=== PATIENT | female | born 1965 | race Caucasian/White ===

== ENCOUNTER 2023-07-07 17:11 | Emergency (ER) | payer MEDICAID, SELFPAY ==
[2023-07-07] VITALS (8 sets, daily range): BP systolic 110–141; BP diastolic 78–94; PULSE 70–111; RESP 16–33; TEMP 36.4; O2SAT 87–98
--- NOTE | ~2023-07-07 | XR_ITS ---
EXAMINATION: XR chest 2V DATE: 07/07/2023 23:36 INDICATION: Cough TECHNIQUE: PA and lateral views of the chest are obtained. COMPARISON: None available FINDINGS: The lungs are free of acute opacities. There is atelectasis or scarring in the left lung ba se. No pleural effusion or pneumothorax. The cardiomediastinal silhouette is normal. There is mild th oracic spondylosis. IMPRESSION: 1. No acute cardiopulmonary abnormality. Reviewed, dictated and finalized at location F.
--- NOTE | ~2023-07-07 | XR_ITS ---
EXAMINATION: XR knee RT min 4V DATE: 07/07/2023 23:45 INDICATION: Right knee pain and swelling TECHNIQUE: Four views of the right knee were obtained. COMPARISON: None. FINDINGS: Alignment is normal. No fracture or osteochondral lesion. There is tricompartmental osteoar thritis of the knee, severe in the medial compartment. No joint effusion/synovitis. Soft tissues are unremarkable. IMPRESSION: 1. No acute osseous abnormality. Reviewed, dictated and finalized at location F.
--- NOTE | ~2023-07-07 | XR_ITS ---
EXAMINATION: XR knee LT min 4V DATE: 07/07/2023 23:45 INDICATION: Left knee pain and swelling TECHNIQUE: Four views of the left knee were obtained. COMPARISON: None. FINDINGS: Alignment is normal. No fracture or osteochondral lesion. There is tricompartmental osteoar thritis of the knee, moderate to severe in the medial compartment. No joint effusion/synovitis. Soft tissues are unremarkable. IMPRESSION: 1. No acute osseous abnormality. Reviewed, dictated and finalized at location F.
--- NOTE | 2023-07-07 17:30 | ECG_ITS ---
Measurements Intervals [place] Rate: 76 P: 60 [place]: 170 QRS: 34 QRSD: 80 T: 32 QT: 386 QTc: 434 Interpretive Statements SINUS RHYTHM LOW QRS VOLTAGE IN PRECORDIAL LEADS [QRS DEFLECTION < 1.0 mV IN CHEST LEADS] ABNORMAL ECG NO PREVIOUS ECG AVAILABLE FOR COMPARISON Electronically Signed On 07-08-2023 10:28:27 CDT by Goyo Jalloh M.D.
--- NOTE | 2023-07-07 17:30 | ED.GENADULT ---
HPI - General Adult General Chief complaint: Unspecified Stated complaint: infection in my whole body, BLE swellling Time Seen by Provider: 07/07/23 17:31 Source: patient Mode of arrival: ambulatory Limitations: no limitations History of Present Illness HPI narrative: This is a 58-year-old female who presents to the ED with multiple complaints. Reports several years of lower extremity pain with ambulation. States this is worse over the past couple of days with increased swelling to the lower legs as well. States the pain is specifically onset with ambulation and states this causes difficulty with walking. Endorses shortness of breath with ambulation. Also reports that she has an infection throughout her whole body because she has concomitant clear nasal drainage and congestion. Also endorses dry cough. She feels that these are all related. Reports she is currently homeless as she just recently moved out of her previous house. She further elaborates on the situation stating that This is probably spiritual. I am a [place] and everyone else are demons. She goes on to state that I have been gifted by the restorationist; out of everyone in the world I am able to see heaven anytime I want.. All I have to do is close my eyes. Denies fevers, chills, chest pain, Related Data Allergies Allergy/AdvReac Type Severity Reaction Status Date / Time No Known Allergies Allergy Verified 07/08/23 00:44 Review of Systems Review of Systems: All systems as dictated in HPI Exam Narrative: GENERAL: Well-appearing, well-nourished, and in no acute distress. HEAD: Normocephalic, atraumatic. EYES: PERRLA and EOMI. ENT: Nares clear, no rhinorrhea or epistaxis. Mucous membranes moist. Oropharynx without tonsillar hypertrophy exudate or other lesions. NECK: Supple. No adenopathy or masses. CHEST: No respiratory distress. Clear to auscultation. No wheezes rales or rhonchi HEART: Regular rate and rhythm. No murmur heard. Normal peripheral pulses. ABDOMEN: Soft, nontender, nondistended, normal active bowel sounds. MSK: 1+ pitting edema to the bilateral lower extremities from foot to knee. SKIN: Warm, dry, no rash. NEURO: Alert and oriented x3. No focal deficits. PSYCH: There is apparent delusional thought content. Course Vital Signs Vital signs: Vital Signs Temperature 97.6 F 10/10/23 17:15 Pulse Rate 111 H 07/07/23 17:15 Respiratory Rate 20 07/07/23 17:15 Blood Pressure 136/82 07/07/23 17:15 Pulse Oximetry 97 07/07/23 17:15 Oxygen Delivery Room Air 07/07/23 17:15 Temperature 97.6 F 07/07/23 17:15 Pulse Rate 85 07/08/23 01:49 Respiratory Rate 16 07/08/23 01:49 Blood Pressure 140/90 07/08/23 01:49 Pulse Oximetry 98 07/08/23 01:49 Oxygen Delivery Room Air 07/07/23 17:15 Medical Decision Making MDM Narrative Medical decision making narrative: Medical screening exam performed by advanced practice provider in triage. Vital Signs Vital Signs: Vital Signs Temperature 97.6 F 07/07/23 17:15 Pulse Rate 111 H 07/07/23 17:15 Respiratory Rate 20 07/07/23 17:15 Blood Pressure 136/82 07/07/23 17:15 Pulse Oximetry 97 07/07/23 17:15 Oxygen Delivery Room Air 07/07/23 17:15 Temperature 97.6 F 07/07/23 17:15 Pulse Rate 85 07/08/23 01:49 Respiratory Rate 16 07/08/23 01:49 Blood Pressure 140/90 07/08/23 01:49 Pulse Oximetry 98 07/08/23 01:49 Oxygen Delivery Room Air 07/07/23 17:15 Lab Data 07/07/23 17:36 07/07/23 17:36 Labs: Lab Results 07/07/23 07/07/23 Range/Units 17:36 23:52 WBC 9.1 (4.5-10.0) K/mm3 RBC 4.27 (4.2-5.4) M/mm3 Hgb 11.5 L (12.0-15.0) g/dL Hct 38.0 (37.0-47.0) % MCV 89.0 (80-100) fl MCH 26.9 (26-34) pg MCHC 30.3 L (32-36) g/dl RDW 13.9 (11.5-14.5) % Plt Count 293 (150-375) k/mm3 MPV 9.0 (7.4-10.4) fl Immature Gran % (Auto) 0.4 (0-0.5) % [place]
--- NOTE | 2023-07-07 17:41 | PC.NURSE ---
Patient asked nurse how much an EKG would cost. When nurse was unable to tell her she states I'm going to hold off on that test right now.
[2023-07-07 17:44] LABS: Basophils Absolute Auto 0.1 K/mm3 (0.0-0.1); Basophils Percent Auto 0.7 % (0.2-1.2); Eosinophils Absolute Auto 0.2 K/mm3 (0-0.3); Eosinophils Percent Auto 1.7 % (0-4.4); Hemoglobin 11.5 g/dL (12.0-15.0); Immature Granulocyte Absolute 0.04 K/mm3 (0.00-0.031); Immature Granulocyte Percent A 0.4 % (0-0.5); Lymphocytes Absolute Auto 2.63 K/mm3 (0.9-3.2); Mean Corpuscular HGB Conc 30.3 g/dl (32-36); Mean Corpuscular Hemoglobin 26.9 pg (26-34); Monocytes Absolute Auto 0.6 K/mm3 (0.1-0.6); Monocytes Percent Auto 6.7 % (2.6-8.5); Neutrophils Absolute Auto 5.6 K/mm3 (1.3-6.7); Neutrophils Percent Auto 61.5 % (45.5-73.1); Platelet Count Result 293 k/mm3 (150-375); Red Blood Count 4.27 M/mm3 (4.2-5.4); Red Cell Distribution Width 13.9 % (11.5-14.5); White Blood Count 9.1 K/mm3 (4.5-10.0)
[2023-07-07 17:54] LABS: Alanine Aminotransferase 62 U/L (6-35); Albumin Level 4.3 g/dL (3.5-5.1); Alkaline Phosphatase 66 U/L (38-126); Anion Gap 11 mmol/L (8-16); Aspartate Amino Transferase 67 U/L (14-36); Bilirubin,Total 0.4 mg/dL (0.2-1.3); Blood Urea Nitrogen 16 mg/dL (7-17); Calcium 9.3 mg/dL (8.4-10.2); Carbon Dioxide 24 mmol/L (22-30); Chloride 106 mmol/L (98-107); Estimated CRCL calculation 67 ml/min; Estimated Glomerular Filt Rate > 60; Glucose 145 mg/dL (65-110); Potassium 3.8 mmol/L (3.4-5.0); Sodium 141 mmol/L (137-145)
[2023-07-07 18:02] LABS: NT Pro B Type Natriuretic Pept < 20 pg/mL (19.9-100)
[2023-07-07 18:19] LABS: Influenza A QL RT-PCR Negative (Negative); Influenza B QL RT-PCR Negative (Negative); RSV RNA, RT-PCR Negative (Negative); SARS-CoV-2 RNA PCR Negative (Negative)
--- NOTE | 2023-07-07 23:25 | ED.GENADULT ---
HPI - General Adult General Chief complaint: Unspecified Stated complaint: infection in my whole body, BLE swellling Time Seen by Provider: 07/07/23 17:31 Source: patient Mode of arrival: ambulatory Limitations: no limitations History of Present Illness HPI narrative: 58-year-old female reports for evaluation for multiple complaints. She is reporting purulent drainage and crusting to her bilateral eyes for the past 3 weeks as well as an intermittent foreign body sensation and erythema. She does wear contacts. States she had an appointment with her eye doctor 1 month ago that was normal. She is also reporting nasal congestion and rhinorrhea for the past 3 weeks as well as a productive cough with yellow mucus. Patient states she has had bilateral lower extremity edema for the past 3 years with lower extremity pain, especiall to her knees. She reports difficulty walking secondary to this edema. No injury or trauma, no history of VTE, no diagnosis of CHF. She denies history of COPD or asthma. Denies chest pain or shortness of breath, fever, body aches or chills, abdominal pain, nausea, vomiting, diarrhea, sore throat, otalgia, headache, back pain, dysuria or hematuria, vaginal discharge or concern for STDs. Denies injury or trauma to her eye, vision changes, pain with EOMs, eye trauma. Related Data Allergies Allergy/AdvReac Type Severity Reaction Status Date / Time No Known Allergies Allergy Verified 07/08/23 00:44 Review of Systems Review of Systems: CONSTITUTIONAL: Denies fever, chills EYES: Denies visual changes, redness, or discharge. ENT: See HPI CARDIOVASCULAR: See HPI RESPIRATORY: Denies cough or dyspnea. GASTROINTESTINAL: Denies abdominal pain, nausea, vomiting, or diarrhea. GENITOURINARY: Denies dysuria or hematuria. SKIN: Denies rash or itching. MUSCULOSKELETAL: See HPI NEUROLOGIC: Denies headache, numbness, dizziness, or weakness. PSYCHIATRIC: Denies anxiety or depression. Exam Narrative: GENERAL: Well-appearing, in no acute distress. Patient resting comfortably in exam bed. She is pleasant and conversational. HEAD: Normocephalic EYES: PERRLA, EOMI. Erythema to bilateral eyes with small amount of crusting in the medial canthus. No cobblestoning, no chemosis. Fluroesceine staining shows no foreign body, abrasions, ulcerations or lesions. Ocular pressures 11mmHg in R eye and 9 mmHg in L eye ENT: Nares clear. Mucous membranes moist. Oropharynx without tonsillar hypertrophy exudate or other lesions. Bilateral TMs are flores nonbulging. Normal canals. No mastoid tenderness. No pain with movement of auricles. NECK: Supple. CHEST: No respiratory distress. Clear to auscultation, no adventitious breath sounds. HEART: Regular rate and rhythm. No murmur heard. Normal peripheral pulses. ABDOMEN: Soft, nontender, normal active bowel sounds. EXTREMITIES: Generalized tenderness to bilateral knees and calves. No overlying erythema or warmth to knees or extremities. Equal nonpitting edema to bilateral lower extremities. No superficial veins or evidence of varicose veins. Full range of motion of hips and knees. Cap refill less than 2. Sensation intact. No overlying skin changes to lower extremities. SKIN: Warm, dry, no rash. NEURO: No focal deficits. Alert and oriented x3. PSYCH: Normal mood and affect. Course Vital Signs Vital signs: Vital Signs Temperature 97.6 F 07/07/23 17:15 Pulse Rate 111 H 07/07/23 17:15 Respiratory Rate 20 07/07/23 17:15 Blood Pressure 136/82 07/07/23 17:15 Pulse Oximetry 97 07/07/23 17:15 Oxygen Delivery Room Air 07/07/23 17:15 Temperature 97.6 F 07/07/23 17:15 Pulse Rate 85 07/08/23 01:49 Respiratory Rate 16 07/08/23 01:49 Blood Pressure 140/90 07/08/23 01:49 Pulse Oximetry 98 07/08/23 01:49 Oxygen Delivery Room Air 07/07/23 17:15 Medical Decision Making MDM Narrative Medical decision making narrative: 58-year-old female reports
[2023-07-08 00:15] LABS: D Dimer 0.39 ug/mL (<0.48)
[2023-07-08 00:30] VITALS: PULSE 72; RESP 20
[2023-07-08 00:32] VITALS: BP 120/70; PULSE 77; RESP 20; O2SAT 98
[2023-07-08 00:37] LABS: Influenza A QL RT-PCR Negative (Negative); Influenza B QL RT-PCR Negative (Negative); SARS-CoV-2 RNA PCR Negative (Negative)
[2023-07-08 01:49] VITALS: BP 140/90; PULSE 85; RESP 16; O2SAT 98
== END 2023-07-08 01:55 | disposition home or self-care (01) ==
PROVIDERS: Physician Assistant; Emergency Provider Physician Assistant
DX: J06.9 Acute upper respiratory infection, unspecified (principal); M79.605 Pain in left leg; M79.604 Pain in right leg; H10.89 Other conjunctivitis; Z20.822 Contact with and (suspected) exposure to COVID-19; Z59.00 Homelessness unspecified
CPT/HCPCS: 36415; 71046; 73564; 80053; 83880; 85025; 85380; 87636; 87637; 93005; 99284